=== PATIENT | male | born 1955 | race Caucasian/White ===

== ENCOUNTER 2016-09-21 12:31 | Emergency (ER) | payer MEDICAID, OTHER ==
[~2016-09-21] VITALS: Ht 185.4 cm; Wt 80.0 kg
[~2016-09-21 12:31] MED LIST: RANI150 PO
[2016-09-21 13:32] VITALS: BP 179/94; PULSE 67; RESP 18; O2SAT 98
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
[2016-09-21] MEDS ORDERED: SODIUM CHLORIDE 0.9% FLUSH 5 ML FLUSH IVF PRN (13:45)
[2016-09-21] MEDS ORDERED: KETOROLAC TROMETHAMINE 30 MG/ML (IVP) VIAL IV PUSH ONE (14:00)
[2016-09-21 14:08] LABS: AUTOMATED NEUTROPHIL # 3.3 TH/MM3 (1.8-7.7); BASOPHIL # 0.1 TH/MM3 (0-0.2); BASOPHIL % 1.4 % (0.0-2.0); EOSINOPHIL # 0.6 TH/MM3 (0-0.4); EOSINOPHIL % 8.1 % (0.0-4.0); HEMATOCRIT 45.4 % (39.0-51.0); HEMO FLAGS DIFF FINAL; LYMPH % 29.7 % (9.0-44.0); MEAN CELL VOLUME 94.2 FL (80.0-100.0); MEAN CORPUSCULAR HEMOGLOBIN 31.8 PG (27.0-34.0); MEAN CORPUSCULAR HGB CONC 33.8 % (32.0-36.0); MONO % 12.9 % (0.0-8.0); NEUT % 47.9 % (16.0-70.0); PLATELET COUNT 415 TH/MM3 (150-450); RED BLOOD COUNT 4.82 MIL/MM3 (4.50-5.90); RED CELL DISTRIBUTION WIDTH 13.9 % (11.6-17.2); WHITE BLOOD COUNT 6.8 TH/MM3 (4.0-11.0)
[2016-09-21 14:17] LABS: BACTERIA, URINE RARE /hpf; BLOOD, URINE NEG (NEG); COMMENT (UR) CULT NOT INDICATED; CULTURE IF INDICATED CULT NOT INDICATED; GLUCOSE,URINE NEG (NEG); KETONE, URINE 10 mg/dL (NEG); MUCUS URINE FEW /lpf (OCC); NITRITE,URINE NEG (NEG); SQUAMOUS EPITHELIAL CELL URINE <1 /hpf (0-5); URINE COLOR YELLOW (YELLW/STRAW)
[2016-09-21] MEDS ORDERED: ASPI325T PO (14:21)
[2016-09-21 14:24] LABS: ALT (GPT) 22 U/L (12-78); ANION GAP 5 MEQ/L (5-15); AST (GOT) 13 U/L (15-37); BICARBONATE 29.1 MEQ/L (21.0-32.0); BLOOD UREA NITROGEN 11 MG/DL (7-18); CHLORIDE 104 MEQ/L (98-107); GLOMERULAR FILTRATION RATE 101 ML/MIN (>89); POTASSIUM 4.5 MEQ/L (3.5-5.1); SODIUM (NA) 138 MEQ/L (136-145)
[2016-09-21 14:27] LABS: ALKALINE PHOSPHATASE 41 U/L (45-117); TOTAL BILIRUBIN ADULT 0.6 MG/DL (0.2-1.0)
[2016-09-21] MEDS ORDERED: CYCL5TAB PO (14:40)
[2016-09-21] MEDS ORDERED: IBUP800T23 PO (14:40)
[2016-09-21 15:06] VITALS: BP 173/92; PULSE 60; RESP 16; O2SAT 97
--- NOTE | 2016-09-21 15:44 | RADRPT ---
EXAM DATE/TIME: 09/21/2016 14:25 [place] COMPARISON: No previous studies available for comparison. INDICATIONS : Left flank pain for one month. ORAL CONTRAST: No oral contrast ingested. RADIATION DOSE: 6.85 CTDIvol (mGy) MEDICAL HISTORY : Hypertension. SURGICAL HISTORY : None. ENCOUNTER: Initial ACUITY: 1 month PAIN SCALE: 10/10 LOCATION: Left Abdomen TECHNIQUE: Volumetric scanning of the abdomen and pelvis was performed. Using automated exposure control and ad justment of the mA and/or kV according to patient size, radiation dose was kept as low as reasonably achievable to obtain optimal diagnostic quality images. FINDINGS: The kidneys are symmetric in size. No evidence of hydronephrosis no calcified renal stones. Both ur eters are normal in diameter without evidence of calcification. Urinary bladder has smooth margins a nd no calcifications within the lumen. Loops of small and large bowel are normal in dimension. The aorta and visualized portion of the live r, spleen, and pancreas are normal for noncontrast technique. Inguinal region is intact. The visual ized lower lungs are clear. Wide windows for bony detail demonstrate the osseous structures to be in tact. CONCLUSION: Negative renal colic CT. Ming Medeiros MD on September 21, 2016 at 15:10 Board Certified Radiologist. This report was verified electronically.
--- NOTE | 2016-09-21 15:47 | PD ---
Data Data Last Documented VS Vital Signs Date Time Temp Pulse Resp B/P Pulse Ox O2 Delivery O2 Flow Rate FiO2 09/21/16 15:06 60 16 173/92 97 Room Air Orders Complete Blood Count With Diff (09/21/16 13:45) Comprehensive Metabolic Panel (09/21/16 13:45) Urinalysis - C+S If Indicated (09/21/16 13:45) Iv Access Insert/Monitor (09/21/16 13:45) Ecg Monitoring (09/21/16 13:45) Oximetry (09/21/16 13:45) Sodium Chloride 0.9% Flush (Ns Flush) (09/21/16 13:45) Electrocardiogram (09/21/16 13:45) Ketorolac Inj (Toradol Inj) (09/21/16 14:00) Ct Abd/Pel W/O Iv Contrast (09/21/16 13:45) Labs Laboratory Tests Test 09/21/16 09/21/16 13:48 13:55 White Blood Count 6.8 TH/MM3 Red Blood Count 4.82 MIL/MM3 Hemoglobin 15.3 GM/DL Hematocrit 45.4 % Mean Corpuscular Volume 94.2 FL Mean Corpuscular Hemoglobin 31.8 PG Mean Corpuscular Hemoglobin 33.8 % Concent Red Cell Distribution Width 13.9 % Platelet Count 415 TH/MM3 Mean Platelet Volume 7.9 FL Neutrophils (%) (Auto) 47.9 % Lymphocytes (%) (Auto) 29.7 % Monocytes (%) (Auto) 12.9 % Eosinophils (%) (Auto) 8.1 % Basophils (%) (Auto) 1.4 % Neutrophils # (Auto) 3.3 TH/MM3 Lymphocytes # (Auto) 2.0 TH/MM3 Monocytes # (Auto) 0.9 TH/MM3 Eosinophils # (Auto) 0.6 TH/MM3 Basophils # (Auto) 0.1 TH/MM3 CBC Comment DIFF FINAL Differential Comment Sodium Level 138 MEQ/L Potassium Level 4.5 MEQ/L Chloride Level 104 MEQ/L Carbon Dioxide Level 29.1 MEQ/L Anion Gap 5 MEQ/L Blood Urea Nitrogen 11 MG/DL Creatinine 0.78 MG/DL Estimat Glomerular Filtration 101 ML/MIN Rate Random Glucose 89 MG/DL Calcium Level 9.3 MG/DL Total Bilirubin 0.6 MG/DL Aspartate Amino Transf 13 U/L (AST/SGOT) Alanine Aminotransferase 22 U/L (ALT/SGPT) Alkaline Phosphatase 41 U/L Total Protein 8.0 GM/DL Albumin 4.1 GM/DL Urine Color YELLOW Urine Turbidity CLEAR Urine pH 6.0 Urine Specific [place] 1.023 Urine Protein NEG mg/dL Urine Glucose (UA) NEG mg/dL Urine Ketones 10 mg/dL Urine Occult Blood NEG Urine Nitrite NEG Urine Bilirubin NEG Urine Urobilinogen LESS THAN 2.0 MG/DL Urine Leukocyte Esterase NEG Urine RBC LESS THAN 1 /hpf Urine WBC 2 /hpf Urine Squamous Epithelial <1 /hpf Cells Urine Bacteria RARE /hpf Urine Mucus FEW /lpf Microscopic Urinalysis Comment CULT NOT INDICATED MDM Supervised Visit with RACHID: Yes Narrative Course The history, exam, and medical decision-making in the associated midlevel provider note were completed with my assistance. I reviewed and agree with the findings presented. I attest that I had a [id number] encounter with the patient on the same day, and personally performed and documented my assessment and findings in the medical record. *My assessment and Findings: This is a 61-year-old male who presents to the emergency department with low back pain that's been worsening over the past several days. He has had injection to the back in the past and this is not new pain for him. Labs and CT were unremarkable. I suspect the patient's pain is musculoskeletal. He will be discharged on a muscle relaxer and referred back to his primary care physician. Diagnosis Primary Impression: Muscle spasm Additional Impression: Lumbosacral strain Qualified Code: S39.012A - Lumbosacral strain, initial encounter Patient Instructions: General Instructions, Flank Pain (ED), Muscle Spasm (ED) Additional Instruction: Please return to emergency department if your symptoms return or worsen. Follow up with your primary care provider as your pain will need further workup since it has been going on for quite some time. Take medications as prescribed. Scripts Ibuprofen 800 Mg [id number] Mg PO TID #30 TAB Ref 0 Prov:Darling Prasad 09/21/16 Cyclobenzaprine (Flexeril)5 Mg Tab5 Mg PO BID PRN (PAIN SCALE 1 TO 10) #30 TAB Ref 0 Prov:Darling Prasad 09/21/16 Disposition: 01 DISCHARGE HOME Condition: Stable Maranda Hernandez MD Sep 21, 2016 15:47
--- NOTE | 2016-09-22 16:31 | EKG ---
Date Performed: 09/21/2016 Time Performed: 14:01:32 PTAGE: 61 years EKG: NORMAL Sinus rhythm BASELINE ARTIFACT NORMAL ECG NO PRIOR FOR COMPARISON NO PREVIOUS TRACING DOCTOR: Jacqui Woods Interpretating Date/Time 09/22/2016 16:30:00
== END 2016-09-21 16:05 | disposition home or self-care (01) ==
LOC: NEPC 12:31
DX: S39.012A Strain of muscle, fascia and tendon of lower back, initial encounter (principal); M62.838 Other muscle spasm; G89.29 Other chronic pain; M54.9 Dorsalgia, unspecified; I10 Essential (primary) hypertension; Z72.0 Tobacco use
CPT/HCPCS: 74176; 80053; 81001; 85025; 93005; 96374; 99284; J1885